=== PATIENT | female | born 1945 | race Hispanic/Latino ===

== ENCOUNTER 2019-03-05 08:35 | Observation (INO) | payer OTHER ==
[2019-03-04 12:08] LABS: BASOPHILS % 0.2 % (0.0-1.0); EOSINOPHILS # (AUTO) 0.1 (0.0-0.4); EOSINOPHILS % 0.5 % (0.0-6.0); HEMATOCRIT 44.5 % (34.2-44.1); HEMOGLOBIN 14.8 g/dL (12.0-16.0); LYMPHOCYTES # (AUTO) 2.6 (1.0-3.2); LYMPHOCYTES % 28.7 % (18.0-39.1); MEAN CORPUSCULAR HEMOGLOBIN 29.3 pg (28-32); MEAN CORPUSCULAR HGB CONC 33.3 g/dL (31-35); MEAN CORPUSCULAR VOLUME 88.1 fL (81-99); MONOCYTES # (AUTO) 0.8 (0.2-0.8); MONOCYTES % 8.5 % (4.4-11.3); NEUTROPHILS # (AUTO) 5.6 (2.1-6.9); NEUTROPHILS % 61.8 % (38.7-80.0); PLATELET COUNT 273 x10e3/uL (140-360); RED BLOOD COUNT 5.05 x10e6/uL (3.6-5.1); RED CELL DISTRIBUTION WIDTH 12.8 % (11.7-14.4)
--- NOTE | 2019-03-04 12:13 | Diagnostic Imaging Report ---
Chest, PA and lateral. History: Preoperative evaluation, cough Comparison: 04/14/2016. Discussion: The cardiomediastinal silhouette and pulmonary vasculature are within normal limits. The lungs are clear without evidence of consolidation or effusion. Unchanged compression deformities of the lower thoracic spine. IMPRESSION: No radiographic evidence of acute cardiopulmonary abnormality. Signed by: Johnny Rosado MD on 03/04/2019 12:10 PM
[2019-03-04 12:23] LABS: ANION GAP 13.6 mmol/L (8-16); BLOOD UREA NITROGEN 14 mg/dL (7-26); BUN/CREATININE RATIO 19 (6-25); CALCIUM 9.7 mg/dL (8.4-10.2); CARBON DIOXIDE 26 mmol/L (22-29); CHLORIDE 102 mmol/L (98-107); CREATININE, SERUM 0.72 mg/dL (0.57-1.11); EST GLOMERULAR FILTRATION RATE > 60 ML/MIN (60-); GLUCOSE 111 mg/dL (74-118); POTASSIUM 3.6 mmol/L (3.5-5.1); SODIUM 138 mmol/L (136-145)
[~2019-03-05] VITALS: Ht 154.9 cm; Wt 134.7 kg
[~2019-03-05 08:35] MED LIST: AMLODIPINE BESY10 MG; ATORVASTATIN CA20 MG PO; BACITRACIN 50,000 UNIT VIAL ONE; CLONIDINE; COMBIGAN EYE DRO5 ML OU; HYDROCHLOROTHIA25 MG; IBUPROFEN200 MG PO; LABETALOL HCL100 MG PO; LOSARTAN POTAS100 MG PO; METFORMIN HCL500 MG PO; NAPROXEN; PRAVASTATIN; ROPIVACAINE 246.25 MG, EPINEPHRINE HCL 1:1000 1ML 0.5 MG, CLONIDINE HCL 0.08 MG, KETORO... INJ ONE; SODIUM CHLORIDE 0.9% 500ML 500 ML ONE; TRANEXAMIC ACID 1,000 MG/10 ML ML ONE; TYLENOL WITH C1 EACH PO; VANCOMYCIN HCL 1,000 MG ONE; [UNRECOGNIZED DRUG - OTHER] OU
--- OUTSIDE RECORDS SUMMARY | 2019-03-05 08:48 | XMS REPORT ---
Author Author [facility] Address Unknown Phone Unavailable Care Team Providers Care Customer Service Trainer Name Role Phone MIRI CRISTINA Unavailable Unavailable Payers Payer Name Policy Type Policy Number Effective Date Expiration Date Problems This patient has no known problems. Allergies, Adverse Reactions, Alerts Allergy Name Allergy Type Status Severity Reaction(s) Onset Date Inactive Date Treating Clinician Comments No Known Allergies DA Active U 2018-03-15 00:00:00 No Known Allergies DA Active U 2010-09-04 00:00:00 Medications This patient has no known medications. Results Test Description Test Time Test Comments Text Results Atomic Results Result Comments CHEST 2 VIEWS 2019-03-04 12:09:00 [place] [address] Patient Name: CHAI IBANEZ MR #: [id number] : 1945 Age/Sex: 74/F Req #: [id number] Adm Physician: Ordered by: MIRI CRISTINA MD Report #: [id number] Location: OR Room/Bed: Procedure: [id number] DX/CHEST 2 VIEWS Exam Date: 03/04/19 Exam Time: 1145 REPORT STATUS: Signed Chest, PA and lateral. History: Preoperative evaluation, cough Comparison: 04/14/2016. Discussion: The cardiomediastinal silhouette and pulmonary vasculature are within normal limits. The lungs are clear without evidence of consolidation or effusion. Unchanged compression deformities of the lower thoracic spine. IMPRESSION: No radiographic evidence of acute cardiopulmonary abnormality. Signed by: Johnny Mares MD on 03/04/2019 12:10 PM Dictated By: JOHNNY MARES MD 1210 Transcribed By: HERBERT on 03/04/19 1210 COPY TO: MIRI CRISTINA MD
[2019-03-05] MEDS ORDERED: GABAPENTIN 300 MG CAP ONE (09:17)
[2019-03-05] MEDS ORDERED: DEXAMETHASONE SOD PHOS 10 MG/1 ML VIAL ONE (09:17)
[2019-03-05] MEDS ORDERED: CELECOXIB 200 MG CAP ONE (09:17)
[2019-03-05] MEDS ORDERED: CEFAZOLIN SOD 1 GM/NS 50ML 100 ML IV ONE (09:18)
[2019-03-05] MEDS ORDERED: ONDANSETRON HCL INJ 2MG/ML 2ML 2 MG/ML VIAL IV PRN (12:30)
[2019-03-05] MEDS ORDERED: HYDROCODONE/APAP 5MG-325MG TAB PO PRN (12:30)
[2019-03-05] MEDS ORDERED: KETOROLAC TROMETHAMINE 30 MG/ML VIAL IV PRN (12:30)
[2019-03-05] MEDS ORDERED: DOCUSATE SODIUM 100 MG CAP PO PRN (12:30)
[2019-03-05] MEDS ORDERED: ACETAMINOPHEN 650 MG SUPP PR PRN (12:30)
[2019-03-05] MEDS ORDERED: PROMETHAZINE HCL (IM) 25 MG/ML VIAL INJ PRN (12:30)
[2019-03-05] MEDS ORDERED: HYDROCODONE/APAP 7.5MG-325MG 1 EA TAB PO PRN (12:30)
[2019-03-05] MEDS ORDERED: DIPHENHYDRAMINE HCL INJ 50 MG/ML VIAL IM/IV PRN (12:30)
[2019-03-05] MEDS ORDERED: FENTANYL CITRATE/PF 100MCG/2 ML INJ ONE ×2 (12:49→14:55)
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
[2019-03-05] MEDS ORDERED: HYDROMORPHONE 1MG/1ML INJ ONE (14:07)
[2019-03-05] MEDS ORDERED: HYDRALAZINE HCL 20 MG/ML VIAL ONE (14:44)
[2019-03-05] MEDS ORDERED: DEXAMETHASONE SOD PHOS INJ 4 MG/ML VIAL ONE (14:44)
[2019-03-05] MEDS ORDERED: PROPOFOL IV EMULSION 10 MG/ML 20 ML VIAL ONE (14:44)
[2019-03-05] MEDS ORDERED: LIDOCAINE HCL 2% LOCAL INJ 5 ML SDV VIAL INJ ONE (14:44)
[2019-03-05] MEDS ORDERED: ONDANSETRON HCL INJ 2MG/ML 2ML 2 MG/ML VIAL ONE (14:44)
[2019-03-05] MEDS ORDERED: SEVOFLURANE INHAL SOLN 250 ML PEN BTL ONE (14:44)
[2019-03-05] MEDS ORDERED: LIDOCAINE 2% /EPINEPHRINE 20 ML SDV INJ ONE (14:48)
[2019-03-05] MEDS ORDERED: ROPIVACAINE 0.5% 5 MG/ML 30 ML SDV ONE (14:48)
--- NOTE | 2019-03-05 14:50 | NUR ---
RECEIVED PATIENT FROM PACU. PATIENT A/O X3, EVEN RESPIRATIONS ON 2LNC. LUNG SOUNDS CLEAR TO AUSCULTATION. BOWEL SOUNDS PRESENT. RIGHT KNEE DRESSING IN PLACE, CLEAN/DRY & INTACT. LEFT DRAKE HOSE IN PLACE, FOOT PUMPS BILATERALLY. LEFT FA 20 GAUGE IV WITH NS @ 100 CC/HR. CALL LIGHT IN REACH, BED LOW, WHEELS LOCKED, SIDE RAILS X2. WILL CONTINUE TO MONITOR PATIENT.
[2019-03-05] MEDS ORDERED: MORPHINE SULFATE INJ 10 MG/ML ONE (14:55)
[2019-03-05] MEDS: SODIUM CHLORIDE 0.9% 1000ML 1,000 ML IV SCH ×2 (15:37→22:21)
[2019-03-05 15:43] VITALS: BP 155/70
[2019-03-05] MEDS ORDERED: DEXTROSE 50% SYRINGE 50 ML IV PRN (16:00)
[2019-03-05 16:01] VITALS: BP 155/70
[2019-03-05 16:02] VITALS: BP 155/70
[2019-03-05] MEDS: INSULIN LISPRO 100 UNIT/1 ML 3ML VIAL SQ SCH ×2 (16:30→21:30)
[2019-03-05] MEDS: LABETALOL HCL 100 MG TAB PO SCH (16:32)
[2019-03-05] MEDS: METFORMIN HCL 500 MG TAB PO SCH (16:32)
[2019-03-05] MEDS: AMLODIPINE BESYLATE 10 MG TAB PO SCH (16:32)
[2019-03-05] MEDS: ASPIRIN 325 MG TAB PO SCH (16:32)
[2019-03-05] MEDS ORDERED: CELECOXIB 100 MG CAP PO SCH (17:00)
[2019-03-05] MEDS ORDERED: CEFAZOLIN SOD 1 GM/NS 50ML 50 ML IV SCH (17:00)
--- NOTE | 2019-03-05 18:36 | NUR ---
IV INFILTRATED TO LEFT FA. REMOVED PATIENTS IV. CATHETER TIP INTACT AND PRESSURE DRESSING APPLIED.
--- NOTE | 2019-03-05 19:03 | NUR ---
PATIENT HAS VOIDED SINCE SURGERY.
--- NOTE | 2019-03-05 19:07 | Operative Report ---
DATE OF PROCEDURE: 03/05/2019 SURGEON: Rashid Samuel MD PATTERN STAMPER: Tony Ellis, certified PA. PREOPERATIVE DIAGNOSIS: Osteoarthritis, right knee. POSTOPERATIVE DIAGNOSIS: Osteoarthritis, right knee. PROCEDURE: Right total knee arthroplasty. INDICATIONS: The patient is a 74-year-old lady with end-stage arthritis in both knees. She has failed conservative management and would like to proceed with definitive surgical intervention. The risks and benefits of a knee replacement have been explained. She states she understands and would like to have the right side done first. PROCEDURE IN DETAIL: The patient was brought to the operating room and placed under general anesthetic. She received prophylactic antibiotics, a regional block, and tranexamic acid in the holding area. Her right lower extremity was prepped and draped in a sterile manner. A preoperative time-out was performed. The extremity was exsanguinated and a proximal tourniquet was inflated to 300 mmHg. An anterior incision with a medial parapatellar arthrotomy was made. Soft tissue releases were performed to bring the knee up into flexion with the patella everted. The cruciate ligaments, meniscal remnants, and marginal osteophytes were all removed. A Adrian and Nephew posterior stabilized Legion knee system was used throughout the case. An extramedullary cutting guide was used to resect the proximal tibia. The tibial base plate was a size 4. The central fin punch was impacted and attention was directed towards the distal femur. An intramedullary cutting guide was used to resect the distal femur in 6 degrees of valgus and rotation referencing off a combination of landmarks including Whitesides line, the epicondylar axis, and the posterior condyles. The femoral component was a size 5. The anterior, posterior, and notch cuts were made. A trial reduction was performed. I felt the 9 mm posterior stabilized tibial insert provided appropriate soft tissue balancing in full extension and 90 degrees of flexion. We elected to use a narrow femoral component. The patella was resurfaced with a 29 mm x 7.5 mm patellar button. The thickness was checked before and after resurfacing, and was 23 mm each time. Patellar tracking was concentric. The trial implants were removed. A 100 mL premixed pericapsular MISSY injection was placed into the surrounding soft tissue. The knee was thoroughly irrigated with a shower tip pulsatile lavage. All bone cuts had been irrigated with a diluted mixture of polymyxin and vancomycin spray. The components were cemented into place using a single mix of Biomet high viscosity cement preloaded with antibiotics. Care was taken to remove all extravasated cement. The wound was further irrigated while the cement cured. A 500 mg of vancomycin powder was then sprinkled into the joint. The arthrotomy was then closed with interrupted #1 Ethibond. The knee was put through flexion and extension to ensure a secure closure. The skin was closed with subcuticular Vicryl and bonnie. A sterile Aquacel bandage and an Luis A wrap were applied. The patient was extubated and transported to the recovery room in stable condition. Blood loss was minimal. All needle and sponge counts were correct. Rashid Samuel MD DR/ASHLYN /[id number]
--- NOTE | 2019-03-05 19:20 | NUR ---
WALKING ROUNDS PERFORMED, RECEIVED PT LAYING SEMI FOWLERS IN BED, AAOX3, RR EVEN AND NON-LABORED, ON ROOM AIR. NO S/SX OF DISTRESS NOTED. CPM APPLIED TO (R) LEG. LEFT PT LAYING SEMI FOWLERS IN BED, BED IN LOW LOCKED POSITION, SIDE RAILS UPX2, CALL LIGHT AND PHONE WITHIN REACH.
[2019-03-05] MEDS: ACETAMINOPHEN 1000 MG/100 ML IV SCH ×2 (19:30→23:18)
--- NOTE | 2019-03-05 19:30 | NUR ---
NEW IV STARTED TO (L) FA, BLOOD RETURN NOTED, FLUSHES WITHOUT DIFFICULTY.
[2019-03-05 20:00] VITALS: BP 126/46
[2019-03-05 20:49] VITALS: BP 139/72
[2019-03-05] MEDS ORDERED: ZOLPIDEM TARTRATE 5 MG TAB PO PRN (21:00)
[2019-03-05] MEDS ORDERED: ATORVASTATIN 20 MG TAB PO SCH (21:00)
[2019-03-06] VITALS: BP 125/50
[2019-03-06] MEDS: CEFAZOLIN SOD 1 GM/NS 50ML 50 ML IV SCH ×2 (00:59→09:23)
[2019-03-06 04:00] VITALS: BP 140/55
[2019-03-06 05:49] LABS: HEMATOCRIT 36.4 % (34.2-44.1); HEMOGLOBIN 12.4 g/dL (12.0-16.0)
[2019-03-06] MEDS: ACETAMINOPHEN 1000 MG/100 ML IV SCH (06:30)
--- NOTE | 2019-03-06 06:30 | NUR ---
KINJAL WRAP REMOVED FROM (R) LEG. AQUACEL DRESSING TO (R) KNEE LEFT IN PLACE, DRAKE WING APPLIED.
--- NOTE | 2019-03-06 07:00 | NUR ---
RECEIVED PATIENT RESTING IN BED NO S/S OF DISTRESS. BED LOW, WHEELS LOCKED, SIDE RAILS X2. CPM IN PLACE. CALL LIGHT IN REACH WILL CONTINUE TO MONITOR PATIENT.
[2019-03-06] MEDS: INSULIN LISPRO 100 UNIT/1 ML 3ML VIAL SQ SCH (07:30)
[2019-03-06 08:18] VITALS: BP 122/60
[2019-03-06] MEDS ORDERED: ONDANSETRON HCL 4 MG ORAL DISINTEGRATING TAB PO PRN (08:30)
[2019-03-06] MEDS ORDERED: CELECOXIB 200 MG CAP PO SCH (09:00)
[2019-03-06] MEDS: METFORMIN HCL 500 MG TAB PO SCH (09:23)
[2019-03-06] MEDS: ASPIRIN 325 MG TAB PO SCH (09:23)
[2019-03-06] MEDS: AMLODIPINE BESYLATE 10 MG TAB PO SCH (09:24)
[2019-03-06] MEDS: LABETALOL HCL 100 MG TAB PO SCH (09:24)
[2019-03-06 10:07] VITALS: BP 122/60
--- NOTE | 2019-03-06 10:16 | NUR ---
Spoke to patient and daughter about home health and DME. [facility] states they will be seeing the patient 03/07 with a physical therapist to do the admission. Gave them another phone number for Haylee [phone]. Also Ms. Dunn states she requested sliders for her walker but [facility] [phone] will not be able to provide DME until tomorrow. Spoke with Sravani at [facility] [place] and informed her to cancel the walker, i will provide but the keep the sliders. Sravani verbalizes understanding. Addendum: 03/06/19 at 1354 by Tia Piña CM walker provided by me at [facility]
--- NOTE | 2019-03-06 10:19 | NUR ---
DAMON explained to patient, patient signed, copy to chart, copy to patient
[2019-03-06 12:12] VITALS: BP 122/56
[2019-03-06] MEDS ORDERED: ACETAMINOPHEN 1000 MG/100 ML IV PRN (12:30)
--- NOTE | 2019-03-06 12:39 | NUR ---
REMOVED PATIENTS IV. CATHETER TIP INTACT AND PRESSURE DRESSING APPLIED.
--- NOTE | 2019-03-06 12:43 | NUR ---
PATIENT DISCHARGED FROM FACILITY. PATIENT GATHERED ALL PERSONAL BELONGINGS, DISCHARGE INSTRUCTIONS, AND FOLLOW UP INFORMATION. PATIENT LEFT UNIT IN WHEELCHAIR AND WENT HOME VIA PRIVATE AUTO. NO SIGNS OF DISTRESS LEAVING FACILITY.
== END 2019-03-06 12:57 | disposition home health service (06) ==
LOC: OR 08:35 → PACU V 12:23 → MED/SURG 14:57
PROVIDERS: ADMIT Specialist; ATTEND Specialist
DX: M17.11 Unilateral primary osteoarthritis, right knee (principal); E11.9 Type 2 diabetes mellitus without complications; K29.70 Gastritis, unspecified, without bleeding; I10 Essential (primary) hypertension; Z86.73 Personal history of transient ischemic attack (TIA), and cerebral infarction without residual deficits; Z01.812 Encounter for preprocedural laboratory examination; Z79.84 Long term (current) use of oral hypoglycemic drugs
CPT/HCPCS: 27447; 36415 ×3; 71046; 73560; 80048; 82948 ×2; 85014; 85018; 85025; 86850; 86900; 86920; 96360; 97116; 97162; 97530 ×2; C1713; G0378 ×2; J0131 ×2; J0171; J0360; J0690 ×2; J1100 ×2; J1170; J1885 ×2; J2001 ×2; J2270; J2405; J2704; J2795; J3010; J3370; J7030; J7040

== ENCOUNTER → 2020-01-07 | Day surgery (SDC) | payer MEDICARE, OTHER ==
[2020-01-02 11:30] LABS: BASOPHILS % 0.2 % (0.0-1.0); EOSINOPHILS # (AUTO) 0.1 (0.0-0.4); EOSINOPHILS % 0.6 % (0.0-6.0); HEMATOCRIT 40.9 % (34.2-44.1); HEMOGLOBIN 13.6 g/dL (12.0-16.0); LYMPHOCYTES % 22.9 % (18.0-39.1); MEAN CORPUSCULAR HEMOGLOBIN 28.7 pg (28-32); MEAN CORPUSCULAR HGB CONC 33.3 g/dL (31-35); MEAN CORPUSCULAR VOLUME 86.3 fL (81-99); MONOCYTES # (AUTO) 0.5 (0.2-0.8); MONOCYTES % 6.1 % (4.4-11.3); NEUTROPHILS # (AUTO) 6.2 (2.1-6.9); NEUTROPHILS % 69.9 % (38.7-80.0); PLATELET COUNT 246 x10e3/uL (140-360); RED BLOOD COUNT 4.74 x10e6/uL (3.6-5.1); RED CELL DISTRIBUTION WIDTH 13.2 % (11.7-14.4)
[~2020-01-07] MED LIST changes: -BACITRACIN 50,000 UNIT VIAL ONE; +FENTANYL CITRATE/PF 100MCG/2 ML INJ ONE; +MELOXICAM7.5 MG PO; +MIDAZOLAM HCL 2 MG/2 ML VIAL ONE; +OR PHACO EYE KIT ONE; +PREOP PHACO EYE KIT ONE; -ROPIVACAINE 246.25 MG, EPINEPHRINE HCL 1:1000 1ML 0.5 MG, CLONIDINE HCL 0.08 MG, KETORO... INJ ONE; -SODIUM CHLORIDE 0.9% 500ML 500 ML ONE; -TRANEXAMIC ACID 1,000 MG/10 ML ML ONE; -VANCOMYCIN HCL 1,000 MG ONE; +VITAMIN B-121000 MCG PO
[2020-01-07 13:05] VITALS: BP 156/78
== END | disposition home or self-care (01) ==
LOC: OR 10:05
PROVIDERS: ATTEND Ophthalmology
DX: H25.12 Age-related nuclear cataract, left eye (principal); H54.61 Unqualified visual loss, right eye, normal vision left eye; E11.9 Type 2 diabetes mellitus without complications; I10 Essential (primary) hypertension; E78.5 Hyperlipidemia, unspecified; Z01.810 Encounter for preprocedural cardiovascular examination; Z01.812 Encounter for preprocedural laboratory examination; Z11.59 Encounter for screening for other viral diseases; Z86.73 Personal history of transient ischemic attack (TIA), and cerebral infarction without residual deficits
CPT/HCPCS: 36415; 66984; 85025; 93005; J2250; J3010; U0002; V2632